=== PATIENT | male | born 1995 | race Hispanic/Latino ===

== ENCOUNTER 2018-03-18 09:38 | Emergency (ER) | payer BC ==
--- NOTE | 2018-03-18 10:37 | ED PDOC ---
HPI: Male Pain Time Seen by Provider: 03/18/18 09:47 Chief Complaint (Nursing): Groin Pain Chief Complaint (Provider): Scrotal Swelling History Per: Patient History/Exam Limitations: no limitations Onset/Duration Of Symptoms: Hrs Current Symptoms Are (Timing): Still Present Associated Symptoms: denies: Fever, Nausea, Vomiting, Diarrhea, Urinary Symptoms Additional Complaint(s): 22 year old male presents to the ED for an evaluation of swelling in the scrotum. Patient reports around midnight after having sex, patient noticed swelling of the right scrotum and he had mild discomfort but no pain. At 5:30am patient reports the swelling increased and due to his own anxiety he passed out. He went to bed. He later called his mom who advised him to go to the ED for further evaluation. Otherwise, he denies pain, fever, vomiting, nausea, abdominal pain, redness on the skin or urinary symptoms such as burning sensation of urination. PMD: Non [facility] Provider Past Medical History Reviewed: Historical Data, Nursing Documentation, Vital Signs Vital Signs: Last Vital Signs Temp 98.0 F 03/18/18 09:42 Pulse 70 03/18/18 09:42 Resp 15 03/18/18 09:42 BP 127/66 03/18/18 09:42 Pulse Ox 98 03/18/18 09:42 - Medical History PMH: Anxiety - Surgical History Surgical History: No Surg Hx - Family History Family History: States: Unknown Family Hx - Social History Current smoker - smoking cessation education provided: No Alcohol: Social Drugs: Denies - Home Medications Home Medications: Ambulatory Orders Medication Instructions Recorded Naproxen [Naprosyn] 500 mg PO BID PRN #20 tablet 03/18/18 Sertraline [Zoloft] 50 mg PO DAILY 03/18/18 - Allergies Allergies/Adverse Reactions: Allergies Allergy/AdvReac Type Severity Reaction Status Date / Time No Known Allergies Allergy Verified 03/18/18 09:51 Review of Systems ROS Statement: Except As Marked, All Systems Reviewed And Found Negative Constitutional: Negative for: Fever Gastrointestinal: Negative for: Nausea, Vomiting, Abdominal Pain, Diarrhea Genitourinary Male: Positive for: Other (scrotal swelling). Negative for: Dysuria, Frequency, Incontinence, Hematuria, Scrotal Pain Skin: Negative for: Rash, Other (redness) Physical Exam - Reviewed Nursing Documentation Reviewed: Yes Vital Signs Reviewed: Yes - Physical Exam Appears: Positive for: Well, Non-toxic, No Acute Distress Head Exam: Positive for: ATRAUMATIC, NORMAL INSPECTION, NORMOCEPHALIC Skin: Positive for: Normal Color, Warm, Dry. Negative for: Rash Eye Exam: Positive for: EOMI, Normal appearance, PERRL Neck: Positive for: Normal, Painless ROM, Supple. Negative for: Decreased ROM Cardiovascular/Chest: Positive for: Regular Rate, Rhythm Respiratory: Positive for: Normal Breath Sounds. Negative for: Decreased Breath Sounds, Wheezing, Respiratory Distress Gastrointestinal/Abdominal: Positive for: Normal Exam, Soft. Negative for: Tenderness, Guarding, Rebound Male Genital Exam: Positive for: normal genitalia (Both testis are normal sized and equal bilateral ), other (scrotum is enlarged, no redness. Collection of f luid in the right scrotum area). Negative for: scrotum tenderness (R) (to palpation ) Extremity: Positive for: Normal ROM. Negative for: Tenderness, Pedal Edema, Deformity Neurologic/Psych: Positive for: Alert, Oriented (x3). Negative for: Motor/Sensory Deficits - ECG O2 Sat by Pulse Oximetry: 98 (RA) Pulse Ox Interpretation: Normal Medical Decision Making Medical Decision Making: Time: 1010 Initial Impression: scrotum swelling Differential Diagnosis: hernia, epididymitis, less likely testicular torsion Initial Plan: Urinalysis Testicular US Reevaluation Time: 1105 FINDINGS: RIGHT TESTICLE: Measures 5.1 x 2.2 x 3.3 cm. Normal echotexture and flow.. There appears to be mild right-sided subcutaneous scrotal edema.. Small 2 mm cystic focus seen within the medial aspect of the right testicle. RIGHT EPIDIDYMIS: Epididymal head measures 1.2 x 0.5 x 0.8 cm. Grossly unremarkable appearance with normal flow. LEFT TESTICLE: Measures 5.4 x 2.4 x 3.2 cm. Normal echotexture and flow. LEFT EPIDIDYMIS: Epididymal head measures 1.0 x 0.5 x 0.6 cm. Grossly unremarkable appearance with normal flow. HYDROCELE: None. VARICOCELE: None. OTHER FINDINGS: None. IMPRESSION: Small cystic focus medial aspect right testicle. Right sided subcutaneous scrotal edema. Scribe Attestation: Documented by Livia German, acting as a scribe for Lakisha Vaughan MD. Provider Scribe Attestation: All medical record entries made by the Scribe were at my direction and personally dictated by me. I have reviewed the chart and agree that the record accurately reflects my personal performance of the history, physical exam, medical decision making, and the department course for this patient. I have also personally directed, reviewed, and agree with the discharge instructions and disposition. Disposition - Clinical Impression Clinical Impression: Scrotal edema - Patient ED Disposition Is Patient to be Admitted: No Doctor Will See Patient In The: Office Counseled Patient/Family Regarding: Diagnosis, Need For Followup, Rx Given - Disposition Referrals: Rojelio Sauer Jr., MD [Staff Provider] - [facility] [Outside] Disposition: Routine/Home Disposition Time: 11:10 Condition: STABLE Prescriptions: Naproxen [Naprosyn] 500 mg PO BID PRN #20 tablet PRN Reason: Pain, Moderate (4-7) Instructions: How to Perform a Testicular Self-Exam Forms: [employer] ([place]) - POA Present On Arrival: None
--- NOTE | 2018-03-18 11:09 | US ---
Date of service: 03/18/2018 HISTORY: Scrotal swelling TECHNIQUE: Realtime sonography through the scrotum with color and doppler flow. COMPARISON: None Available. FINDINGS: RIGHT TESTICLE: Measures 5.1 x 2.2 x 3.3 cm. Normal echotexture and flow.. There appears to be mild right-sided subcutaneous scrotal edema.. Small 2 mm cystic focus seen within the medial aspect of the right testicle. RIGHT EPIDIDYMIS: Epididymal head measures 1.2 x 0.5 x 0.8 cm. Grossly unremarkable appearance with normal flow. LEFT TESTICLE: Measures 5.4 x 2.4 x 3.2 cm. Normal echotexture and flow. LEFT EPIDIDYMIS: Epididymal head measures 1.0 x 0.5 x 0.6 cm. Grossly unremarkable appearance with normal flow. HYDROCELE: None. VARICOCELE: None. OTHER FINDINGS: None. IMPRESSION: Small cystic focus medial aspect right testicle. Right sided subcutaneous scrotal edema.
[2018-03-18 12:12] VITALS: BP 134/78; PULSE 82; RESP 16; TEMP 98.1; O2SAT 99
[2018-03-18 12:26] LABS: URINE BILIRUBIN NEGATIVE (NEGATIVE); URINE BLOOD NEGATIVE (NEGATIVE); URINE CLARITY SLIGHTY-CLOUDY (Clear); URINE COLOR YELLOW (YELLOW); URINE GLUCOSE (UA) NEG (NEGATIVE); URINE LEUKOCYTE ESTERASE MOD Leu/uL (Negative); URINE PROTEIN NEGATIVE (NEGATIVE); URINE UROBILINOGEN 0.2-1.0 mg/dL (0.2-1.0)
== END 2018-03-18 12:11 | disposition home or self-care (01) ==
LOC: H.ER 09:38
DX: N50.89 Other specified disorders of the male genital organs (principal); F41.9 Anxiety disorder, unspecified